=== PATIENT | male | born 1980 | race African-American/Black ===

== ENCOUNTER 2019-09-18 07:31 | Emergency (ER) | payer MEDICAID ==
[~2019-09-18] VITALS: Ht 195.6 cm; Wt 104.3 kg
[2019-09-18 07:43] VITALS: BP 156/103
[2019-09-18 09:52] LABS: Albumin 4.1 g/dL (3.4-5.0); Calcium 8.6 mg/dL (8.5-10.1)
[2019-09-18 09:54] LABS: Bilirubin, Total 0.6 mg/dL (0.2-1.0); Total Protein 7.6 g/dL (6.4-8.2)
[2019-09-18 09:55] LABS: Basophils # (auto) 0.1 10 ^3/uL (0-0.2); Basophils % (auto) 0.7 % (0.0-2.0); Eosinophils # (auto) 0.3 10 ^3/uL (0-0.8); Eosinophils % (auto) 2.9 % (0.0-7.0); Hematocrit 46.8 % (41.0-53.0); Hemoglobin 16.1 g/dL (13.5-17.5); Lymphocytes # (auto) 2.7 10 ^3/uL (0.4-5.4); Lymphocytes % (auto) 29.7 % (10.0-50.0); Mean Corpuscular Hemoglobin 30.6 pg (28.0-32.0); Mean Corpuscular Hgb Conc. 34.5 g/dL (32.0-36.0); Mean Corpuscular Volume 88.8 fL (80.0-100.0); Monocytes # (auto) 0.7 10 ^3/uL (0-1.3); Monocytes % (auto) 8.4 % (0.0-12.0); Neutrophils # (auto) 5.2 10 ^3/uL (1.6-8.6); Neutrophils % (auto) 58.3 % (37.0-80.0); Nucleated Red Blood Cells % 0.2 %; Platelet Count (auto) 364 10^3/uL (140-450); Red Blood Cells 5.27 10^6/uL (4.5-5.90); Red Cell Distribution Width 13.6 % (11.8-14.3); White Blood Cell 8.9 10^3/uL (4.4-10.8)
[2019-09-18 10:04] LABS: Potassium 2.9 mmol/L (3.5-5.1)
[2019-09-18] MEDS ORDERED: SODIUM CHLORIDE 0.9% 1,000 ML IVB ONE (11:30)
[2019-09-18 11:57] LABS: Magnesium 2.6 mg/dL (1.6-2.6)
== END 2019-09-18 13:17 | disposition left against medical advice (07) ==
LOC: EDBD 07:31 → ER 07:31
DX: R42 Dizziness and giddiness (principal); Z53.21 Procedure and treatment not carried out due to patient leaving prior to being seen by health care provider
CPT/HCPCS: 36415; 80053; 83735; 84484; 85025

== ENCOUNTER 2020-07-17 20:26 | Emergency (ER) | payer MEDICAID ==
[~2020-07-17] VITALS: Ht 185.4 cm; Wt 81.6 kg
[2020-07-17] MEDS ORDERED: LISINOPRIL 20 MG TAB PO ONE (20:45)
[2020-07-17] MEDS ORDERED: FAMOTIDINE 20 MG TAB PO ONE (21:30)
[2020-07-17] MEDS ORDERED: LIDOCAINE VISCOUS 2% 15ML UD PO ONE (21:30)
[2020-07-17] MEDS ORDERED: ACETAMINOPHEN 325 MG TAB PO ONE (21:30)
[2020-07-17 23:33] LABS: Basophils # (auto) 0.1 10 ^3/uL (0-0.2); Basophils % (auto) 0.6 % (0.0-2.0); Eosinophils # (auto) 0.2 10 ^3/uL (0-0.8); Eosinophils % (auto) 1.8 % (0.0-7.0); Hematocrit 45.8 % (41.0-53.0); Hemoglobin 15.7 g/dL (13.5-17.5); Lymphocytes # (auto) 3.2 10 ^3/uL (0.4-5.4); Lymphocytes % (auto) 34.5 % (10.0-50.0); Mean Corpuscular Hemoglobin 30.5 pg (28.0-32.0); Mean Corpuscular Hgb Conc. 34.3 g/dL (32.0-36.0); Mean Corpuscular Volume 89.1 fL (80.0-100.0); Monocytes % (auto) 10.5 % (0.0-12.0); Neutrophils # (auto) 4.9 10 ^3/uL (1.6-8.6); Neutrophils % (auto) 52.6 % (37.0-80.0); Nucleated Red Blood Cells % 0.3 %; Platelet Count (auto) 317 10^3/uL (140-450); Red Blood Cells 5.14 10^6/uL (4.5-5.90); Red Cell Distribution Width 13.5 % (11.8-14.3); White Blood Cell 9.4 10^3/uL (4.4-10.8)
[2020-07-17 23:51] LABS: Alanine Aminotransferase 50 U/L (16-61); Anion Gap 9 (5-15); Aspartate Aminotransferase 28 U/L (15-37); BUN/Creatinine Ratio 12.7; Blood Urea Nitrogen 15 mg/dL (7-18); Calcium 8.5 mg/dL (8.5-10.1); Carbon Dioxide 24 mmol/L (21-32); Chloride 107 mmol/L (98-107); GFR African American 87 mL/min; GFR Non-African American 72 mL/min; Glucose 118 mg/dL (74-106); Potassium 3.2 mmol/L (3.5-5.1); Sodium 140 mmol/L (136-145)
[2020-07-17 23:56] LABS: Alkaline Phosphatase 68 U/L (45-117); Total Protein 7.7 g/dL (6.4-8.2)
[2020-07-18 04:00] VITALS: BP 125/75
== END 2020-07-18 04:51 | disposition home or self-care (01) ==
LOC: EDBD 20:26 → ER 20:30
DX: M54.6 Pain in thoracic spine (principal); M79.18 Myalgia, other site; R07.9 Chest pain, unspecified; K21.9 Gastro-esophageal reflux disease without esophagitis; I10 Essential (primary) hypertension; J45.909 Unspecified asthma, uncomplicated; F17.210 Nicotine dependence, cigarettes, uncomplicated; F15.10 Other stimulant abuse, uncomplicated; Z59.0 Homelessness
CPT/HCPCS: 36415; 71046; 80053; 84484; 85025; 93005

== ENCOUNTER 2020-08-28 05:16 | Emergency (ER) | payer MEDICAID ==
[~2020-08-28] VITALS: Ht 195.6 cm; Wt 104.3 kg
[2020-08-28 07:44] VITALS: BP 136/92
[2020-08-28] MEDS ORDERED: KETOROLAC TROMETH 60MG/2ML VIAL IM ONE (08:00)
== END 2020-08-28 08:22 | disposition home or self-care (01) ==
LOC: ER 05:16 → EDBD 05:16 → ER 08:22
DX: S16.1XXA Strain of muscle, fascia and tendon at neck level, initial encounter (principal); J45.909 Unspecified asthma, uncomplicated; K21.9 Gastro-esophageal reflux disease without esophagitis; I10 Essential (primary) hypertension; F17.210 Nicotine dependence, cigarettes, uncomplicated; Z59.0 Homelessness; X58.XXXA Exposure to other specified factors, initial encounter; Y93.89 Activity, other specified; Y92.89 Other specified places as the place of occurrence of the external cause; Y99.8 Other external cause status
CPT/HCPCS: 96372; 99283; J1885

== ENCOUNTER 2020-10-29 18:50 | Emergency (ER) | payer MEDICAID ==
[~2020-10-29] VITALS: Ht 195.6 cm; Wt 104.3 kg
[2020-10-29] MEDS ORDERED: LABETALOL HCL 200 MG TAB PO ONE (19:15)
[2020-10-30 00:23] VITALS: BP 161/110
== END 2020-10-30 00:32 | disposition home or self-care (01) ==
LOC: EDBD 18:50 → ER 18:57
DX: S16.1XXA Strain of muscle, fascia and tendon at neck level, initial encounter (principal); S29.012A Strain of muscle and tendon of back wall of thorax, initial encounter; M62.838 Other muscle spasm; J45.909 Unspecified asthma, uncomplicated; K21.9 Gastro-esophageal reflux disease without esophagitis; I10 Essential (primary) hypertension; F17.210 Nicotine dependence, cigarettes, uncomplicated; Z59.0 Homelessness; X58.XXXA Exposure to other specified factors, initial encounter; Y93.89 Activity, other specified; Y92.89 Other specified places as the place of occurrence of the external cause; Y99.8 Other external cause status
CPT/HCPCS: 72125; 72128

== ENCOUNTER 2020-10-30 02:26 | Emergency (ER) | payer MEDICAID ==
[~2020-10-30] VITALS: Ht 195.6 cm; Wt 108.9 kg
[2020-10-30 03:18] LABS: Basophils # (auto) 0 10 ^3/uL (0-0.2); Basophils % (auto) 0.7 % (0.0-2.0); Eosinophils # (auto) 0.2 10 ^3/uL (0-0.8); Eosinophils % (auto) 2.7 % (0.0-7.0); Hematocrit 46.9 % (41.0-53.0); Hemoglobin 16.1 g/dL (13.5-17.5); Lymphocytes # (auto) 2.9 10 ^3/uL (0.4-5.4); Lymphocytes % (auto) 40.9 % (10.0-50.0); Mean Corpuscular Hemoglobin 30.3 pg (28.0-32.0); Mean Corpuscular Hgb Conc. 34.3 g/dL (32.0-36.0); Mean Corpuscular Volume 88.5 fL (80.0-100.0); Monocytes # (auto) 0.9 10 ^3/uL (0-1.3); Monocytes % (auto) 12.6 % (0.0-12.0); Neutrophils # (auto) 3.1 10 ^3/uL (1.6-8.6); Neutrophils % (auto) 43.1 % (37.0-80.0); Nucleated Red Blood Cells % 0.1 %; Red Cell Distribution Width 14.6 % (11.8-14.3); White Blood Cell 7.1 10^3/uL (4.4-10.8)
[2020-10-30 03:36] LABS: BUN/Creatinine Ratio 15.6; Calcium 8.6 mg/dL (8.5-10.1); Potassium 3.9 mmol/L (3.5-5.1)
[2020-10-30 06:00] VITALS: BP 137/99
[2020-10-30 06:01] LABS: Urine Bacteria NONE SEEN /hpf (None Seen); Urine Blood Negative /uL (Negative); Urine WBC <1 /hpf (0 - 3)
== END 2020-10-30 06:00 | disposition home or self-care (01) ==
LOC: ER 02:28
DX: R53.1 Weakness (principal); I10 Essential (primary) hypertension; K21.9 Gastro-esophageal reflux disease without esophagitis; J45.909 Unspecified asthma, uncomplicated; F17.210 Nicotine dependence, cigarettes, uncomplicated; Z59.0 Homelessness
CPT/HCPCS: 36415; 80048; 81001; 85025

== ENCOUNTER 2022-01-20 23:27 | Emergency (ER) | payer MEDICAID ==
[~2022-01-20] VITALS: Ht 188 cm; Wt 93.5 kg
[2022-01-21] MEDS ORDERED: cloNIDine HCL 0.1 MG TAB PO ONE (00:15)
[2022-01-21 01:10] LABS: Basophils # (auto) 0.1 10 ^3/uL (0-0.2); Eosinophils # (auto) 0.4 10 ^3/uL (0-0.8); Eosinophils % (auto) 3.9 % (0.0-7.0); Hematocrit 47.9 % (41.0-53.0); Lymphocytes # (auto) 3.5 10 ^3/uL (0.4-5.4); Lymphocytes % (auto) 37.3 % (10.0-50.0); Mean Corpuscular Hemoglobin 30.5 pg (28.0-32.0); Mean Corpuscular Hgb Conc. 33.4 g/dL (32.0-36.0); Mean Corpuscular Volume 91.5 fL (80.0-100.0); Monocytes # (auto) 0.9 10 ^3/uL (0-1.3); Monocytes % (auto) 9.6 % (0.0-12.0); Neutrophils # (auto) 4.6 10 ^3/uL (1.6-8.6); Neutrophils % (auto) 48.2 % (37.0-80.0); Nucleated Red Blood Cells % 0.1 %; Red Blood Cells 5.23 10^6/uL (4.5-5.90); Red Cell Distribution Width 14.2 % (11.8-14.3); White Blood Cell 9.5 10^3/uL (4.4-10.8)
[2022-01-21 01:30] LABS: Bilirubin, Total 0.4 mg/dL (0.2-1.0)
[2022-01-21 02:13] LABS: Calcium 9.1 mg/dL (8.5-10.1); Total Protein 7.3 g/dL (6.4-8.2)
[2022-01-21 04:09] LABS: BUN/Creatinine Ratio 13.4
[2022-01-21 04:25] VITALS: BP 110/72
== END 2022-01-21 04:30 | disposition home or self-care (01) ==
LOC: EDBD 23:27 → ER 23:28
DX: F41.9 Anxiety disorder, unspecified (principal); F32.9 Major depressive disorder, single episode, unspecified; I10 Essential (primary) hypertension; R51.9 Headache, unspecified; K21.9 Gastro-esophageal reflux disease without esophagitis; J45.909 Unspecified asthma, uncomplicated; F17.210 Nicotine dependence, cigarettes, uncomplicated
CPT/HCPCS: 36415; 70450; 80053; 84484; 85025; 93005

== ENCOUNTER 2022-05-16 23:26 | Emergency (ER) | payer MEDICAID ==
[~2022-05-16] VITALS: Ht 182.9 cm; Wt 90.0 kg
[2022-05-17] MEDS ORDERED: KETOROLAC TROMETH 30 MG/ML 1ML VIAL IM ONE (03:15)
[2022-05-17] MEDS ORDERED: CEPH-510 PO (03:15)
[2022-05-17 03:32] VITALS: BP 118/85
== END 2022-05-17 03:46 | disposition home or self-care (01) ==
LOC: ER 23:26
DX: L03.116 Cellulitis of left lower limb (principal); J45.909 Unspecified asthma, uncomplicated; I10 Essential (primary) hypertension; F20.9 Schizophrenia, unspecified; F17.210 Nicotine dependence, cigarettes, uncomplicated; Z59.00 Homelessness unspecified
CPT/HCPCS: 99283; J1885

== ENCOUNTER 2023-03-12 17:55 | Emergency (ER) | payer MEDICAID ==
[~2023-03-12] VITALS: Ht 190.5 cm; Wt 120.0 kg
[~2023-03-12 17:55] MED LIST: CEPH-510 PO
[2023-03-12 19:30] VITALS: BP 152/112; PULSE 86; RESP 20; TEMP 98.1; O2SAT 99
[2023-03-12 20:36] LABS: Basophils # (auto) 0 10 ^3/uL (0-0.2); Basophils % (auto) 0.4 % (0.0-2.0); Eosinophils # (auto) 0.1 10 ^3/uL (0-0.8); Eosinophils % (auto) 1.4 % (0.0-7.0); Hematocrit 47.4 % (41.0-53.0); Hemoglobin 15.9 g/dL (13.5-17.5); Lymphocytes # (auto) 2.8 10 ^3/uL (0.4-5.4); Lymphocytes % (auto) 29.7 % (10.0-50.0); Mean Corpuscular Hemoglobin 29.9 pg (28.0-32.0); Mean Corpuscular Hgb Conc. 33.5 g/dL (32.0-36.0); Mean Corpuscular Volume 89.2 fL (80.0-100.0); Monocytes # (auto) 0.8 10 ^3/uL (0-1.3); Monocytes % (auto) 8.1 % (0.0-12.0); Neutrophils # (auto) 5.6 10 ^3/uL (1.6-8.6); Neutrophils % (auto) 60.4 % (37.0-80.0); Nucleated Red Blood Cells % 0.2 %; Red Blood Cells 5.31 10^6/uL (4.5-5.90); Red Cell Distribution Width 13.7 % (11.8-14.3); White Blood Cell 9.3 10^3/uL (4.4-10.8)
[2023-03-12 20:54] LABS: Urine Epithelial Cast None Seen /hpf (<5)
[2023-03-12 20:55] LABS: Alanine Aminotransferase 29 U/L (7-40); Alkaline Phosphatase 78 U/L (46-116); Anion Gap 11 (5-15); Aspartate Aminotransferase 20 U/L (13-40); BUN/Creatinine Ratio 7.4 (10.0-20.0); Blood Urea Nitrogen 8 mg/dL (9-23); Calcium 10.2 mg/dL (8.5-10.1); Carbon Dioxide 22 mmol/L (20-30); Chloride 108 mmol/L (98-107); Glucose 102 mg/dL (74-106); Potassium 4.2 mmol/L (3.5-5.1); Sodium 141 mmol/L (136-145)
[2023-03-12 20:56] LABS: Albumin 4.8 g/dL (3.2-4.8); Bilirubin, Total 0.5 mg/dL (0.2-1.0); Total Protein 7.1 g/dL (5.7-8.2)
[2023-03-12 21:27] LABS: Amphetamine Screen, Urine Pos (NEGATIVE); Barbiturate Scree,Urine Neg (NEGATIVE); Benzodiazephine Screen, Urine Neg (NEGATIVE); Cannabinoid Screen, Urine Pos (NEGATIVE); Cocaine Screen, Urine Neg (NEGATIVE); Opiate Scree,Urine Neg (NEGATIVE); Phencyclidine Screen, Urine Neg (NEGATIVE)
[2023-03-12 21:30] LABS: Urine Bacteria NONE SEEN /hpf (None Seen); Urine Blood Negative /uL (Negative); Urine Clarity Clear (Clear); Urine Color Yellow (Yellow); Urine Mucus FEW (None Seen); Urine Protein, UAD TRACE (Negative); Urine Specific Gravity 1.027 (1.001-1.035); Urine WBC 5 /hpf (0 - 3); Urine pH 5.5 (5.0-8.0)
[2023-03-13] MEDS: SERTRALINE HCL 50 MG TAB PO SCH ×2 (12:59→13:01)
[2023-03-13] MEDS: OLANZapine 5 MG TAB PO SCH ×2 (12:59→13:01)
[2023-03-14] MEDS ORDERED: AML5T PO (21:20)
== END 2023-03-14 05:27 | disposition home or self-care (01) ==
LOC: ER 17:55
DX: R45.851 Suicidal ideations (principal); I10 Essential (primary) hypertension; J45.909 Unspecified asthma, uncomplicated; F17.210 Nicotine dependence, cigarettes, uncomplicated; Z59.00 Homelessness unspecified
CPT/HCPCS: 36415; 80053; 80307; 81001; 85025

== ENCOUNTER 2023-03-14 17:45 | Emergency (ER) | payer MEDICAID ==
[~2023-03-14] VITALS: Ht 195.6 cm; Wt 99.8 kg
[2023-03-14] MEDS ORDERED: amLODIPine BESYLATE 5 MG TAB PO ONE (19:15)
[2023-03-14 20:27] LABS: Basophils # (auto) 0.1 10 ^3/uL (0-0.2); Basophils % (auto) 0.6 % (0.0-2.0); Eosinophils # (auto) 0.1 10 ^3/uL (0-0.8); Eosinophils % (auto) 1.5 % (0.0-7.0); Lymphocytes % (auto) 34.5 % (10.0-50.0); Mean Corpuscular Hemoglobin 29.9 pg (28.0-32.0); Mean Corpuscular Volume 87.9 fL (80.0-100.0); Monocytes # (auto) 0.5 10 ^3/uL (0-1.3); Monocytes % (auto) 6.3 % (0.0-12.0); Neutrophils # (auto) 4.9 10 ^3/uL (1.6-8.6); Neutrophils % (auto) 57.1 % (37.0-80.0); Nucleated Red Blood Cells % 0.2 %; Red Blood Cells 5.35 10^6/uL (4.5-5.90); Red Cell Distribution Width 13.4 % (11.8-14.3); White Blood Cell 8.7 10^3/uL (4.4-10.8)
[2023-03-14 20:53] LABS: Acetaminophen < 2.0 UG/ML (10.0-20.0); Alanine Aminotransferase 21 U/L (7-40); Albumin 4.5 g/dL (3.2-4.8); Alkaline Phosphatase 71 U/L (46-116); Anion Gap 10 (5-15); Aspartate Aminotransferase 16 U/L (13-40); Blood Alcohol 4.7 mg/dL (<10); Blood Urea Nitrogen 7 mg/dL (9-23); Calcium 9.4 mg/dL (8.5-10.1); Carbon Dioxide 22 mmol/L (20-30); Chloride 109 mmol/L (98-107); Glucose 102 mg/dL (74-106); Sodium 141 mmol/L (136-145)
[2023-03-14 20:54] LABS: Bilirubin, Total 0.4 mg/dL (0.2-1.0)
[2023-03-14 20:58] LABS: Salicylate < 3.0 mg/dL (2.8-20.0)
[2023-03-14] MEDS ORDERED: AML5T PO (21:20)
[2023-03-14 21:30] VITALS: PULSE 91; RESP 20; O2SAT 99
[2023-03-15 04:53] LABS: Amphetamine Screen, Urine Pos (NEGATIVE); Barbiturate Scree,Urine Neg (NEGATIVE); Benzodiazephine Screen, Urine Neg (NEGATIVE); Cannabinoid Screen, Urine Pos (NEGATIVE); Cocaine Screen, Urine Neg (NEGATIVE); Opiate Scree,Urine Neg (NEGATIVE); Phencyclidine Screen, Urine Neg (NEGATIVE)
[2023-03-15 08:26] VITALS: PULSE 82; RESP 20; O2SAT 96
[2023-03-15] MEDS ORDERED: SERTRALINE HCL 50 MG TAB PO SCH (10:00)
[2023-03-15] MEDS ORDERED: OLANZapine 5 MG TAB PO SCH ×2 (10:00→22:00)
[2023-03-15 20:10] VITALS: BP 142/78; TEMP 98.4
[2023-03-15 20:11] VITALS: PULSE 82; RESP 18; O2SAT 98
[2023-03-16] MEDS ORDERED: BUSP10TA90 PO (21:00)
[2023-03-16] MEDS ORDERED: OLAN1TAB7 PO (21:00)
[2023-03-16] MEDS ORDERED: LISI20TA56 PO (21:00)
[2023-03-16] MEDS ORDERED: TRAZ-228 PO ×2 (21:00→22:31)
[2023-03-16] MEDS ORDERED: RIS1T PO (22:31)
[2023-03-16] MEDS ORDERED: BENA20TA PO (22:31)
[2023-03-16] MEDS ORDERED: SERT50TA PO (22:31)
== END 2023-03-15 20:22 | disposition left against medical advice (07) ==
LOC: ER 17:47
DX: R45.851 Suicidal ideations (principal); J45.909 Unspecified asthma, uncomplicated; F17.210 Nicotine dependence, cigarettes, uncomplicated; F41.9 Anxiety disorder, unspecified; F32.A Depression, unspecified; F20.9 Schizophrenia, unspecified; Z59.00 Homelessness unspecified
CPT/HCPCS: 36415; 80053; 80307; 80320; 80329; 85025

== ENCOUNTER 2023-03-16 20:16 | Emergency (ER) | payer MEDICAID ==
[~2023-03-16] VITALS: Ht 195.6 cm; Wt 100.4 kg
[~2023-03-16 20:16] MED LIST changes: +AML5T PO
[2023-03-16] MEDS ORDERED: BUSP10TA90 PO (21:00)
[2023-03-16] MEDS ORDERED: OLAN1TAB7 PO (21:00)
[2023-03-16] MEDS ORDERED: LISI20TA56 PO (21:00)
[2023-03-16] MEDS ORDERED: TRAZ-228 PO ×2 (21:00→22:31)
[2023-03-16 21:28] LABS: Basophils # (auto) 0.1 10 ^3/uL (0-0.2); Basophils % (auto) 0.8 % (0.0-2.0); Eosinophils # (auto) 0.1 10 ^3/uL (0-0.8); Hematocrit 46.5 % (41.0-53.0); Hemoglobin 15.6 g/dL (13.5-17.5); Lymphocytes # (auto) 2.9 10 ^3/uL (0.4-5.4); Lymphocytes % (auto) 28.1 % (10.0-50.0); Mean Corpuscular Hemoglobin 30.1 pg (28.0-32.0); Mean Corpuscular Hgb Conc. 33.6 g/dL (32.0-36.0); Mean Corpuscular Volume 89.4 fL (80.0-100.0); Monocytes # (auto) 0.5 10 ^3/uL (0-1.3); Monocytes % (auto) 5.2 % (0.0-12.0); Neutrophils # (auto) 6.8 10 ^3/uL (1.6-8.6); Neutrophils % (auto) 64.9 % (37.0-80.0); Nucleated Red Blood Cells % 0.1 %; Red Cell Distribution Width 14.1 % (11.8-14.3); White Blood Cell 10.4 10^3/uL (4.4-10.8)
[2023-03-16 21:42] LABS: Alanine Aminotransferase 19 U/L (7-40); Albumin 4.5 g/dL (3.2-4.8); Alkaline Phosphatase 68 U/L (46-116); Anion Gap 11 (5-15); Aspartate Aminotransferase 12 U/L (13-40); Bilirubin, Total 0.5 mg/dL (0.2-1.0); Calcium 9.4 mg/dL (8.5-10.1); Carbon Dioxide 19 mmol/L (20-30); Chloride 109 mmol/L (98-107); Glucose 127 mg/dL (74-106); Potassium 3.9 mmol/L (3.5-5.1); Sodium 139 mmol/L (136-145)
[2023-03-16 21:44] LABS: BUN/Creatinine Ratio 4.5 (10.0-20.0); Blood Urea Nitrogen < 5 mg/dL (9-23)
[2023-03-16] MEDS ORDERED: SERT50TA PO (22:31)
[2023-03-16] MEDS ORDERED: RIS1T PO (22:31)
[2023-03-16] MEDS ORDERED: BENA20TA PO (22:31)
[2023-03-16 22:54] VITALS: BP 153/108; PULSE 113; RESP 18; TEMP 99.1; O2SAT 97
[2023-03-16] MEDS ORDERED: BENAZEPRIL HCL 10 MG TAB PO ONE (23:00)
== END 2023-03-16 22:59 | disposition home or self-care (01) ==
LOC: ER 20:16
DX: J45.909 Unspecified asthma, uncomplicated (principal); F99 Mental disorder, not otherwise specified; I10 Essential (primary) hypertension; F17.210 Nicotine dependence, cigarettes, uncomplicated; F15.10 Other stimulant abuse, uncomplicated; Z59.00 Homelessness unspecified
CPT/HCPCS: 36415; 80053; 85025

== ENCOUNTER 2023-05-28 21:10 | Emergency (ER) | payer MEDICAID ==
[~2023-05-28] VITALS: Ht 188 cm; Wt 90.7 kg
[~2023-05-28 21:10] MED LIST changes: +BENA20TA PO; +BUSP10TA90 PO; +LISI20TA56 PO; +OLAN1TAB7 PO; +RIS1T PO; +SERT50TA PO; +TRAZ-228 PO
[2023-05-28 22:30] LABS: Alanine Aminotransferase 39 U/L (7-40); Alkaline Phosphatase 73 U/L (46-116); Aspartate Aminotransferase 11 U/L (13-40)
[2023-05-28 22:31] LABS: Anion Gap 8 (5-15); BUN/Creatinine Ratio 17.3 (10.0-20.0); Bilirubin, Total 0.4 mg/dL (0.2-1.0); Blood Urea Nitrogen 18 mg/dL (9-23); Calcium 10.3 mg/dL (8.7-10.4); Carbon Dioxide 27 mmol/L (20-30); Chloride 104 mmol/L (98-107); Glucose 117 mg/dL (74-106); Magnesium 2.2 mg/dL (1.6-2.6); Potassium 4.4 mmol/L (3.5-5.1); Sodium 139 mmol/L (136-145); Total Protein 7.5 g/dL (5.7-8.2)
[2023-05-28 23:04] LABS: Basophils # (auto) 0.1 10 ^3/uL (0-0.2); Basophils % (auto) 0.5 % (0.0-2.0); Eosinophils # (auto) 0.1 10 ^3/uL (0-0.8); Eosinophils % (auto) 0.3 % (0.0-7.0); Hematocrit 48.6 % (41.0-53.0); Lymphocytes # (auto) 3.6 10 ^3/uL (0.4-5.4); Lymphocytes % (auto) 19.1 % (10.0-50.0); Mean Corpuscular Hemoglobin 29.5 pg (28.0-32.0); Mean Corpuscular Hgb Conc. 32.8 g/dL (32.0-36.0); Mean Corpuscular Volume 89.7 fL (80.0-100.0); Monocytes # (auto) 1.4 10 ^3/uL (0-1.3); Monocytes % (auto) 7.3 % (0.0-12.0); Neutrophils # (auto) 13.8 10 ^3/uL (1.6-8.6); Neutrophils % (auto) 72.8 % (37.0-80.0); Nucleated Red Blood Cells % 0.1 %; Red Blood Cells 5.42 10^6/uL (4.5-5.90); Red Cell Distribution Width 13.9 % (11.8-14.3); White Blood Cell 18.9 10^3/uL (4.4-10.8)
[2023-05-28 23:30] VITALS: BP 155/99; PULSE 126; RESP 17; O2SAT 96
[2023-05-28] MEDS: PANTOPRAZOLE 40 MG TAB PO ONE (23:30)
[2023-05-28] MEDS ORDERED: OMEP-335 PO (23:50)
[2023-05-29] MEDS ORDERED: ZOFR4T PO (00:42)
[2023-05-29] MEDS: ONDANSETRON ODT 4 MG TAB PO ONE (01:06)
== END 2023-05-29 01:08 | disposition home or self-care (01) ==
LOC: EDBD 21:10 → ER 21:10
DX: K21.9 Gastro-esophageal reflux disease without esophagitis (principal); I10 Essential (primary) hypertension; J45.909 Unspecified asthma, uncomplicated; F41.9 Anxiety disorder, unspecified; F32.9 Major depressive disorder, single episode, unspecified; F20.9 Schizophrenia, unspecified; F17.210 Nicotine dependence, cigarettes, uncomplicated; F15.90 Other stimulant use, unspecified, uncomplicated; Z79.899 Other long term (current) drug therapy
CPT/HCPCS: 36415; 71045; 80053; 83735; 83880; 84484; 93005; 99285; Q0162

== ENCOUNTER 2023-06-03 19:44 | Emergency (ER) | payer MEDICAID ==
[~2023-06-03] VITALS: Ht 195.6 cm; Wt 99.7 kg
[~2023-06-03 19:44] MED LIST changes: +OMEP-335 PO; +ZOFR4T PO
[2023-06-03 20:10] VITALS: BP 144/96; PULSE 121; RESP 18; O2SAT 97
== END 2023-06-03 23:54 | disposition left against medical advice (07) ==
LOC: ER 19:44
DX: M79.10 Myalgia, unspecified site (principal); Z53.21 Procedure and treatment not carried out due to patient leaving prior to being seen by health care provider